=== PATIENT | male | born 1985 | race American Indian/Alaskan Native ===

== ENCOUNTER 2020-04-13 16:40 | Emergency (ER) | payer OTHER ==
[2020-04-13] MEDS ORDERED: DIPHtheria,PERTUSSIS(ACELL),TETANUS VACCINE/PF 0.5 ML VIAL IM ONE (16:47)
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
[2020-04-13] MEDS ORDERED: ONDANSETRON 4 MG/2 ML INJ IV ONE (17:01)
[2020-04-13] MEDS ORDERED: MORPHINE 2 MG/1 ML INJ IV ONE (17:01)
--- NOTE | 2020-04-13 17:06 | Emergency Department Report ---
ED Upper Extremity Inj HPI - General Chief Complaint: Wound/Laceration Stated Complaint: HAND LACERATION Time Seen by Provider: 04/13/20 16:46 Source: patient Mode of arrival: Ambulatory Limitations: No Limitations - History of Present Illness Initial Comments: 34-year-old male, no past medical history, presents to ED with crush injury to left index finger injury. Patient states he was attempting to close a train door, and he the distal tip of his left index finger. Patient reports sensation is intact. Patient reports he is right-handed. Tetanus is not up-to-date. MD Complaint: Injury to:: left, finger -: hour(s) (1) Other Extremity Injury: Fingers: Left Other Injuries: none Handedness: right Place: work Improves With: immobilization Worsens With: movement of extremity Context: laceration Associated Symptoms: denies other symptoms - Related Data Allergies Allergy/AdvReac Type Severity Reaction Status Date / Time No Known Allergies Allergy Unverified 04/13/20 16:43 ED Review of Systems ROS: Stated complaint: HAND LACERATION Other details as noted in HPI Comment: All other systems reviewed and negative Musculoskeletal: as per HPI Neurological: denies: numbness ED Past Medical Hx - Past Medical History Previous Medical History?: No - Surgical History Past Surgical History?: No ED Physical Exam - General Limitations: No Limitations General appearance: alert - Head Head exam: Present: atraumatic, normocephalic - Eye Eye exam: Present: normal appearance, EOMI - ENT ENT exam: Present: mucous membranes moist - Respiratory Respiratory exam: Present: normal lung sounds bilaterally. Absent: respiratory distress - Cardiovascular Cardiovascular Exam: Present: regular rate, normal rhythm - GI/Abdominal GI/Abdominal exam: Absent: distended - Extremities Exam Extremities exam: Present: other ("V"-like laceration across the dorsum of the left index finger, just inferior to the nailbed with exposure of bone; pt able to flex/ extend at the MIP and PIP) - Neurological Exam Neurological exam: Present: alert, oriented X3. Absent: motor sensory deficit - Psychiatric Psychiatric exam: Present: normal affect, normal mood - Skin Skin exam: Present: warm, dry, intact, normal color ED Course - Consultations Consultation #1: 04/13/20 17:57 [place] transfer line contacted. 04/13/20 18:04 Michael on total diversion. Will contact [facility]. 04/13/20 18:25 Spoke w/ Dr Smith. Images sent for review. 04/13/20 18:34 Transfer to [facility] accepted by Dr Smith. ED Medical Decision Making - Radiology Data Radiology results: report reviewed, image reviewed - Medical Decision Making 34-year-old male with crush injury to finger resulting in amputation of distal tip of left index finger. Patient given Ancef and tetanus immunization. X-ray shows comminuted, displaced fracture of the distal phalanx. Finger has been irrigated with 1000 cc of normal saline. Dressings have been applied, finger splint placed. Patient will be transferred to [facility] for treatment by hand specialist, Dr. Smith. - Differential Diagnosis amputation, fracture Critical care attestation.: If time is entered above; I have spent that time in minutes in the direct care of this critically ill patient, excluding procedure time. ED Disposition Clinical Impression: Amputation of left index finger Disposition: DC/TX-[id number] ANOTHER TYPE HLTHCARE Is pt being admited?: No Condition: Stable Time of Disposition: 18:36
[2020-04-13] MEDS ORDERED: SODIUM CHLORIDE IRRI 500 ML 1,000 ML IR ONE (17:07)
[2020-04-13] MEDS ORDERED: SODIUM CHLORIDE IRRI 500 ML 500 ML IR ONE (17:25)
--- NOTE | 2020-04-13 17:56 | XRay Report ---
XR finger(s) 2+V LT INDICATION / CLINICAL INFORMATION: index finger laceration COMPARISON: None available. FINDINGS: There is evidence of soft tissue laceration of the left index finger with comminuted fracture of the distal phalanx. The terminal tuft volarly displaced. A portion of the fracture extends through the sk in. No joint subluxation or dislocation. No definite radiopaque foreign body. IMPRESSION: Soft tissue laceration of the left index finger with comminuted displaced open fracture of the distal phalanx. Signer Name: Kevin Milton MD Signed: 04/13/2020 5:26 PM Workstation Name: [id number]
[2020-04-13 19:58] VITALS: BP 129/87
== END 2020-04-13 20:20 | disposition other institution (70) ==
LOC: ED 16:40
DX: S69.92XA Unspecified injury of left wrist, hand and finger(s), initial encounter (principal); Z89.022 Acquired absence of left finger(s); W23.0XXA Caught, crushed, jammed, or pinched between moving objects, initial encounter; Y93.89 Activity, other specified; Y92.89 Other specified places as the place of occurrence of the external cause; Y99.8 Other external cause status
CPT/HCPCS: 29130; 73140; 90471; 90715; 96365; 96375; 99284; J0690; J2270; J2405